=== PATIENT | female | born 1985 | race American Indian/Alaskan Native ===

== ENCOUNTER 2016-09-17 10:25 | Emergency (ER) | payer SELFPAY ==
[2016-09-17 10:59] VITALS: BP 127/78
--- NOTE | 2016-09-17 13:53 | Emergency Department Report ---
[id number] 13:38 - HPI HPI: This is a 31-year-old Afro-[place] female presents to the emergency department with a 2 to three-day history of lower abdominal cramping, some nausea and vomiting, and some discomfort to the flanks. The patient says that she could be as her last menstrual period was June 13. She has not taken any home tests. She does not have a primary care doctor or OFFSET PRINTER. She has not taken anything for symptoms prior to presentation. No recent travel or sick contacts at home. She complains of some hot flashes. She denies any chest pain, shortness of breath, vaginal discharge, dysuria, problems with bowel or bladder. Patient did say that she had a very mild amount of vaginal bleeding this morning when she was wiping after urination. ED Past Medical Hx - Past Medical History Hx Hypertension: No Hx Diabetes: Yes (Gestational) Hx Deep Vein Thrombosis: No Hx Renal Disease: No Hx Sickle Cell Disease: No Hx Seizures: No Hx Asthma: No Hx HIV: No - Social History Smoking Status: Never Smoker - Medications Home Medications: Home Medications Medication Instructions Recorded Confirmed Last Taken Type Pnv with Ca,No.72/Iron/FA 1 tab PO DAILY 09/28/13 10/25/13 10/25/13 History [ Plus Tablet] Valacyclovir HCl [Valacyclovir] 500 mg PO DAILY 10/25/13 10/25/13 10/25/13 History Ferrous Sulfate [Feosol 325 MG tab] 325 mg PO BID #60 tablet 10/26/13 Unknown Rx Ibuprofen [Motrin 600 MG tab] 800 mg PO Q8H PRN #30 tablet 10/26/13 Unknown Rx Vit-Fe Fumar-FA [ 1 each PO QDAY #30 tablet 09/17/16 Unknown Rx Vitamin] ED Review of Systems ROS: Stated complaint: ABD PAIN/NAUSEA Other details as noted in HPI Comment: All other systems reviewed and negative Constitutional: denies: fever, weakness Eyes: denies: eye pain, eye discharge, vision change ENT: denies: ear pain, throat pain Respiratory: denies: cough, shortness of breath, wheezing Cardiovascular: denies: chest pain, palpitations Gastrointestinal: abdominal pain, nausea, vomiting Genitourinary: denies: urgency, dysuria, discharge Musculoskeletal: denies: back pain, joint swelling, arthralgia Skin: denies: rash, lesions Neurological: denies: headache, weakness, paresthesias Physical Exam - Physical Exam Vital Signs: Vital Signs 09/17/16 10:55 Temperature 98.4 F Pulse Rate 98 H Respiratory 18 Rate Blood Pressure 127/78 O2 Sat by Pulse 100 Oximetry Physical Exam: GENERAL: The patient is well-developed well-nourished. HEENT: Normocephalic. Atraumatic. Extraocular motions are intact. Patient has moist mucous membranes. Pupils equal and reactive to light bilaterally. NECK: Supple. Trachea is midline. CHEST/LUNGS: Clear to auscultation. There is no respiratory distress noted. HEART/CARDIOVASCULAR: Regular. There is no tachycardia. There is no gallop rub or murmur. ABDOMEN: Abdomen is soft. Patient has some reproducible tenderness to palpation to the bilateral lower quadrants and pain that is not reproducible to the flanks. No guarding rebound tenderness. No peritoneal signs. Gravid uterus not palpable. Patient has normal bowel sounds. There is no abdominal distention. SKIN: There is no rash. There is no edema. There is no diaphoresis. NEURO: The patient is awake, alert, and oriented. The patient is cooperative. The patient has no focal neurologic deficits. The patient has normal speech. MUSCULOSKELETAL: There is no tenderness or deformity. There is no limitation range of motion. There is no evidence of acute injury. ED Course Vital Signs 09/17/16 10:55 Temperature 98.4 F Pulse Rate 98 H Respiratory 18 Rate Blood Pressure 127/78 O2 Sat by Pulse 100 Oximetry ED Medical Decision Making - Radiology Data Radiology results: report reviewed Transvaginal/ ultrasound shows a live intrauterine at about 6 weeks and 5 days. - Medical Decision Making 31-year-old female presents to the emergency department with complaint of lower abdominal pain, a very scant amount of bleeding seen while wiping. Patient says she also has not had a menstrual cycle since May but has had some intermittent bleeding occasionally. Patient's urinalysis does not show any signs of urinary tract infection or significant hematuria but urine test does come back positive. Patient was sent for a transvaginal ultrasound that shows a live intrauterine at about 7 weeks. Patient does not have any peritoneal signs, she has bilateral abdominal pain. I discussed with the patient possibility of appendicitis but it does not appear to be high probability at this time. Patient started on vitamins and given referrals for OFFSET PRINTER. She was given some Tylenol for her discomfort. She will follow-up with the OFFSET PRINTER but understands to return to the emergency department with any worsening of her symptoms, localized right lower quadrant abdominal pain with the peritoneal signs described to her, or any acute distress. She understands and agrees the plan. - Differential Diagnosis , UTI, fibroids, appendicitis, colitis, kidney stones Critical Care Time: No Critical care attestation.: If time is entered above; I have spent that time in minutes in the direct care of this critically ill patient, excluding procedure time. ED Disposition Clinical Impression: Threatened Qualifiers: Weeks of gestation: less than 8 weeks Qualified Code(s): Z3A.01 - Less than 8 weeks gestation of Abdominal pain Qualifiers: Abdominal location: lower abdomen, unspecified Qualified Code(s): R10.30 - Lower abdominal pain, unspecified Disposition: DISCHARGED TO HOME OR SELFCARE Is pt being admited?: No Does the pt Need Aspirin: No Condition: Stable Instructions: Abdominal Pain (ED), (ED), Threatened Miscarriage (ED) Additional Instructions: Please follow-up with an OFFSET PRINTER in the next few days if possible. I have started you on vitamins. You've been given the diagnosis of threatened miscarriage. The ultrasound has shown used to be at almost 7 weeks. You have the diagnosis of threatened miscarriage only because you had some vaginal bleeding. However the majority of the time these pregnancies go full-term and had no further complications. However it is imperative to follow up with an OFFSET PRINTER and return to the emergency department with any worsening of your abdominal pain, vaginal bleeding, or any acute distress. You can take Tylenol every 4 hours, using weight-based dosing, as needed for discomfort. However he should not take any other medications besides this unless prescribed by a physician. Prescriptions: Vit-Fe Fumar-FA [ Vitamin] 1 each PO QDAY #30 tablet Referrals: PRIMARY MD PROMISE [Primary Care Provider] - 3-5 Days TAMMIE SALAZAR MD [Staff Physician] - 3-5 Days KRYSTIN BLANDON MD [Staff Physician] - 3-5 Days Time of Disposition: 15:33
[2016-09-17 14:00] LABS: Bacteria,Urine 1+ /HPF (Negative); Bilirubin,Urine NEG (Negative); Blood,Urine NEG (Negative); Ketones,Urine 20 mg/dL (Negative); Leukocyte Esterase,Urine TR (Negative); Mucus,Urine 3+ /HPF; Nitrite,Urine NEG (Negative); Protein,Urine <15 mg/dL mg/dL (Negative); Urobilinogen,Urine < 2.0 mg/dL (<2.0)
[2016-09-17] MEDS ORDERED: TYLENOL PO ONE (15:03)
--- NOTE | 2016-09-17 15:13 | Ultrasound Report ---
Pelvic and transvaginal sonography: History: Abdominal pain. . Findings: Uterus measures 9.3 x 5.7 x 6.7 cm. Single intrauterine gestation is noted. CRL of the fetus is 8.1 mm corresponding to 6 weeks and 5 days of gestation. heart rate 145 per minute. Right ovary left ovary is not visualized. Impression: Single viable intrauterine gestation.
== END 2016-09-17 15:37 | disposition home or self-care (01) ==
LOC: ED 10:25
DX: O20.0 Threatened abortion (principal); O21.0 Mild hyperemesis gravidarum; Z3A.01 Less than 8 weeks gestation of pregnancy
CPT/HCPCS: 76801; 76817; 81001; 81025

== ENCOUNTER 2017-03-03 11:38 | Emergency (ER) | payer OTHER, MEDICAID ==
[2017-03-03 11:46] VITALS: BP 139/97
[2017-03-03 12:37] LABS: Bacteria,Urine 1+ /HPF (Negative); Bilirubin,Urine NEG (Negative); Blood,Urine NEG (Negative); Ketones,Urine NEG (Negative); Leukocyte Esterase,Urine NEG (Negative); Mucus,Urine 1+ /HPF; Nitrite,Urine NEG (Negative); Protein,Urine <15 mg/dL mg/dL (Negative); Urobilinogen,Urine < 2.0 mg/dL (<2.0); WBC,Urine < 1.0 /HPF (0.0-6.0)
[2017-03-03] MEDS ORDERED: FLEXERIL PO ONE (12:42)
[2017-03-03] MEDS ORDERED: MOTRIN PO ONE (12:42)
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
== END 2017-03-03 13:45 | disposition home or self-care (01) ==
LOC: ED 11:38
DX: N91.2 Amenorrhea, unspecified (principal); M54.5 Low back pain; V49.49XA Driver injured in collision with other motor vehicles in traffic accident, initial encounter; Y93.9 Activity, unspecified; Y92.9 Unspecified place or not applicable; Y99.9 Unspecified external cause status
CPT/HCPCS: 72100; 81001; 81025; 99283

== ENCOUNTER 2017-11-04 10:33 | Inpatient (IN) | payer MEDICAID, OTHER ==
--- NOTE | 2017-11-04 11:41 | Ultrasound Report ---
ULTRASOUND BIOPHYSICAL PROFILE: History: Decreased variability Technique: Transabdominal ultrasound with Doppler interrogation. 2 - breathing movements 2 - movements 2 - posture and tone 2 - Qualitative amniotic fluid volume 8 - TOTAL SCORE OF POSSIBLE 8 Heart Rate (bpm) 147
--- NOTE | 2017-11-04 11:42 | Ultrasound Report ---
ULTRASOUND OB LIMITED History: AJ Technique: Transabdominal ultrasound with Doppler interrogation. Gestation: Single Position: Cephalic Amniotic Fluid: Normal AJ = 11.1 cm Heart Rate: 147 BPM
[2017-11-04] MEDS ORDERED: NORMOSOL-R PH 7.4 1,000 ML IV ONE (12:16)
[2017-11-04] MEDS ORDERED: PITOCin/NS 20 UNIT/1000ML DRIP 20,000 MILLIUNITS/1,000 ML BAG IV ONE (12:33)
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
[2017-11-04] MEDS ORDERED: XYLOCAINE 2% INFILTRATI ONE (12:57)
[2017-11-04] MEDS ORDERED: BRETHINE IVP PRN (12:57)
[2017-11-04] MEDS ORDERED: MINERAL OIL PO PRN (12:57)
[2017-11-04] MEDS ORDERED: ePHEDrine SULFATE IV PRN (12:57)
[2017-11-04] MEDS ORDERED: BRETHINE SUB-Q PRN (12:57)
[2017-11-04] MEDS ORDERED: PITOCin/NS 30 UNIT/500ML 30 UNITS/500 ML BAG IV SCH (13:00)
[2017-11-04] MEDS ORDERED: PITOCin/NS 20 UNIT/1000ML DRIP 20 UNITS/1,000 ML BAG IV SCH (13:00)
--- NOTE | 2017-11-04 13:03 | Procedure Note ---
OB Delivery Note - Delivery Date of Delivery: 11/04/17 Surgeon: CHRIS VILLARREAL Estimated blood loss: 100cc - Vaginal Delivery presentation: vertex Delivery position: OA Intrapartum events: precipitous labor- <3hr Delivery induction: none Delivery augmentation: rupture of membranes Delivery monitor: external FHT, external uterine Route of delivery: Delivery placenta: spontaneous Delivery cord: nuchal cord (x1), 3 umbilical vessels Episiotomy: none Delivery laceration: none Delivery repair: vicryl Anesthesia: none Delivery comments: delivered OA and placed on Mom's chest for [id number] bonding and delayed cord clamping. - A at 1 minute: 8 at 5 minutes: 9 Infant Gender: Male ([id number])
[2017-11-04 13:07] LABS: Hematocrit 34.8 % (30.3-42.9); Hemoglobin 11.4 gm/dl (10.1-14.3); Mean Corpuscular HGB Conc 33 % (30-34); Mean Corpuscular Hemoglobin 28 pg (28-32); Mean Corpuscular Volume 84 fl (79-97); Platelet Count 247 K/mm3 (140-440); Red Blood Count 4.16 M/mm3 (3.65-5.03); Red Cell Distribution Width 14.8 % (13.2-15.2)
[2017-11-04] MEDS ORDERED: NORMOSOL-R PH 7.4 1,000 ML IV SCH (14:00)
[2017-11-04] MEDS: MOTRIN PO PRN (15:35)
[2017-11-04] MEDS: NORCO 5/325 PO PRN ×2 (15:35→21:35)
[2017-11-04 20:38] LABS: Bacteria,Urine 1+ /HPF (Negative); Bilirubin,Urine NEG (Negative); Blood,Urine LG (Negative); Color,Urine Yellow (Yellow); Mucus,Urine FEW /HPF; Urobilinogen,Urine < 2.0 mg/dL (<2.0)
[2017-11-04 20:40] LABS: RBC,Urine > 182.0 /HPF (0.0-6.0)
[2017-11-05] MEDS: MOTRIN PO PRN ×3 (01:11→21:20)
[2017-11-05 01:15] LABS: Hematocrit 32.8 % (30.3-42.9); Hemoglobin 10.5 gm/dl (10.1-14.3)
[2017-11-05] MEDS ORDERED: BOOSTRIX IM ONE (06:00)
[2017-11-05] MEDS: NORCO 5/325 PO PRN (08:42)
--- NOTE | 2017-11-05 08:49 | Progress Note ---
Assessment and Plan - Patient Problems (1) 37 weeks gestation of Onset Date: 11/04/17 Current Visit: Yes Status: Resolved (2) GDM (gestational diabetes mellitus), class A1 Onset Date: 11/04/17 Current Visit: Yes Status: Chronic (3) Active labor at term Onset Date: 11/04/17 Current Visit: No Status: Resolved (4) (normal spontaneous vaginal delivery) Onset Date: 11/05/17 Current Visit: Yes Status: Resolved Plan to address problem: A: S/P - PPD #1 Doing well GDM - stable P: May go home tomorrow Subjective - Subjective Date of service: 11/05/17 Principal diagnosis: s/p - PPD #1 Interval history: Pt is feeling well, bleeding improved. Baby in NICU. Patient reports: appetite normal, voiding normally, pain well controlled, flatus , ambulating normally, no nauseated [place]: doing well, in NICU Objective - Vital Signs Latest vital signs: Vital Signs Temp Pulse Resp BP BP Pulse Ox 11/05/17 08:42 20 11/04/17 23:39 98.0 F 74 20 115/76 100 11/04/17 20:00 98.6 F 84 16 105/71 11/04/17 14:46 98.4 F 67 16 108/72 100 11/04/17 14:16 71 101/64 11/04/17 14:01 68 104/66 11/04/17 13:46 71 120/64 11/04/17 13:45 71 16 101/64 98 11/04/17 13:30 71 120/64 11/04/17 13:16 71 124/81 11/04/17 13:15 97.5 F L 71 16 124/81 98 11/04/17 13:01 72 117/72 11/04/17 12:56 75 116/69 11/04/17 12:50 68 104/66 11/04/17 11:48 89 99 11/04/17 11:44 85 94 11/04/17 11:43 88 100 11/04/17 11:38 89 100 11/04/17 11:33 86 100 11/04/17 11:27 88 100 11/04/17 11:23 86 100 11/04/17 11:21 99 H 89 11/04/17 11:18 86 100 11/04/17 11:13 88 100 11/04/17 11:11 95 H 91 11/04/17 11:07 84 100 11/04/17 11:02 90 100 11/04/17 10:57 90 100 11/04/17 10:52 84 100 11/04/17 10:46 98.2 F 86 18 113/73 100 Intake and Output 11/04/17 11/05/17 11/05/17 22:59 06:59 14:59 Intake Total 300 240 Balance 300 240 Intake: Oral 240 Intake, Free Water 300 Other: Total, Intake Amount 240 # Voids Void 1 - Exam Breasts: Present: deferred Cardiovascular: Present: Regular rate Lungs: Present: Clear to auscultation Abdomen: Present: normal appearance, soft, tenderness Uterus: Present: normal, firm, fundal height below umbilicus Extremities: Present: normal - Labs Labs: Abnormal lab results 11/04/17 11/04/17 11/04/17 Range/Units 12:00 13:28 20:15 WBC 11.6 H (4.5-11.0) K/mm3 POC Glucose 141 H (70-105) Urine WBC (Auto) 24.0 H (0.0-6.0) /HPF 11/04/17 Range/Units 23:43 WBC (4.5-11.0) K/mm3 POC Glucose 60 L (70-105) Urine WBC (Auto) (0.0-6.0) /HPF Laboratory Tests 11/04/17 11/04/17 11/04/17 12:00 12:00 13:28 WBC 11.6 H RBC 4.16 Hgb 11.4 Hct 34.8 MCV 84 MCH 28 MCHC 33 RDW 14.8 Plt Count 247 POC Glucose 141 H Urine Color Urine Turbidity Urine pH Ur Specific [place] Urine Protein Urine Glucose (UA) Urine Ketones Urine Blood Urine Nitrite Urine Bilirubin Urine Urobilinogen Ur Leukocyte Esterase Urine WBC (Auto) Urine RBC (Auto) U Epithel Cells (Auto) Urine Bacteria (Auto) Urine Mucus Blood Type O POSITIVE Antibody Screen Negative 11/04/17 11/04/17 11/05/17 20:15 23:43 01:05 WBC RBC Hgb 10.5 Hct 32.8 MCV MCH MCHC RDW Plt Count POC Glucose 60 L Urine Color Yellow Urine Turbidity Clear Urine pH 6.0 Ur Specific [place] 1.015 Urine Protein 30 mg/dl Urine Glucose (UA) 150 Urine Ketones Tr Urine Blood Lg Urine Nitrite Neg Urine Bilirubin Neg Urine Urobilinogen < 2.0 Ur Leukocyte Esterase Tr Urine WBC (Auto) 24.0 H Urine RBC (Auto) > 182.0 U Epithel Cells (Auto) 1.0 Urine Bacteria (Auto) 1+ Urine Mucus Few Blood Type Antibody Screen
[2017-11-05 13:09] LABS: Amphetamine Screen,Urine PRESUMPTIVE NEGATIVE; Benzodiazepines Screen,Urine PRESUMPTIVE NEGATIVE; Cocaine Screen,Urine PRESUMPTIVE NEGATIVE; Methadone Screen,Urine PRESUMPTIVE NEGATIVE; Opiate Screen,Urine PRESUMPTIVE NEGATIVE
[2017-11-05 13:38] LABS: Cannabinoid Screen,Urine PRESUMPTIVE POSITIVE
--- NOTE | 2017-11-05 15:20 | Discharge Summary ---
Providers - Providers Date of Admission: 11/04/17 11:48 Date of discharge: 11/06/17 Attending physician: CHRIS VILLARREAL 11/05/17 13:56 Consult to Case Management [CONS] Routine Services Needed at Discharge: Sap Hana Architect Notified:: Flaca Beltran Phone number called:: [phone] Was contact made?: Yes Time called:: 09:00 Additional Physician Instructions: pt. positive for marijuana Primary care physician: CHRIS VILLARREAL Hospitalization Reason for admission: active labor, IUP at term Delivery: Episiotomy: none Laceration: none Other procedures: none complications: none Discharge diagnosis: IUP at term delivered [place] baby: male Hospital course: Unremarkable. Condition at discharge: Good Disposition: DC-01 TO HOME OR SELFCARE - Discharge Diagnoses (1) 37 weeks gestation of Status: Resolved (2) GDM (gestational diabetes mellitus), class A1 Status: Chronic (3) Active labor at term Status: Resolved (4) (normal spontaneous vaginal delivery) Status: Resolved Plan - Discharge Medications Prescriptions: Ferrous Sulfate [Feosol 325 MG tab] 325 mg PO BID #60 tablet Ibuprofen [Motrin] 600 mg PO Q6H PRN #30 tablet PRN Reason: Pain Vit Calc,Iron,Folic [ Vitamins] 1 each PO DAILY #30 tablet - Provider Discharge Summary Activity: routine, no sex for 6 weeks, no heavy lifting 4 weeks, no strenuous exercise Diet: routine Instructions: routine Additional instructions: [] Smoking cessation referral if applicable(refer to patient education folder for contact #) [] Refer to [facility] Booklet Call your doctor immediately for: * Fever > 100.5 * Heavy vaginal bleeding ( >1 pad per hour) * Severe persistent headache * Shortness of breath * Reddened, hot, painful area to leg or breast * Drainage or odor from incision. * Keep incision clean and dry at all times and follow doctor's instructions regarding bathing/showering - Follow up plan Follow up: HCRIS VILLARREAL MD [Primary Care Provider] - 6 Weeks
[2017-11-06] MEDS: MOTRIN PO PRN (09:55)
[2017-11-06] MEDS: NORCO 5/325 PO PRN (09:55)
[2017-11-06 10:45] VITALS: BP 104/71
== END 2017-11-06 12:03 | disposition home or self-care (01) | DRG 775 ==
LOC: TRG 10:33 → LD 11:48 → OB 15:02
PROVIDERS: ADMIT Obstetrics & Gynecology; ATTEND Obstetrics & Gynecology
PROC: 10E0XZZ Delivery of Products of Conception, External Approach (ICD-10-PCS; principal; 2017-11-04)
PROC: 10907ZC Drainage of Amniotic Fluid, Therapeutic from Products of Conception, Via Natural or Artificial Opening (ICD-10-PCS; 2017-11-04)
PROC: 3E0234Z Introduction of Serum, Toxoid and Vaccine into Muscle, Percutaneous Approach (ICD-10-PCS; 2017-11-05)
DX: O62.3 Precipitate labor (principal); O69.81X0 Labor and delivery complicated by cord around neck, without compression, not applicable or unspecified; O24.429 Gestational diabetes mellitus in childbirth, unspecified control; Z3A.37 37 weeks gestation of pregnancy; Z37.0 Single live birth; Z23 Encounter for immunization
CPT/HCPCS: 36415; 76815; 76819; 80307; 81001; 82962; 85014; 85018; 85027; 86592; 86706; 86762; 86850; 86900; 86901; 87806; 90715; 99211; 99406; G0463; J2590

== ENCOUNTER 2018-01-07 09:47 | Day surgery (SDC) | payer MEDICAID, OTHER ==
[~2018-01-07 09:47] MED LIST: LACTATED RINGERS 1,000 ML IV SCH; PERCOCET 5/325 PO PRN; TORADOL IV PRN; VERSED IV NR; ZOFRAN IV PRN
--- NOTE | 2018-01-07 10:17 | Short Stay Summary ---
Short Stay Documentation Date of service: 01/07/18 Narrative H&P: Pt is a 32yo BF LMP 12/22/17 presents for permanent sterilization. - History Principal diagnosis: Desires permanent sterilization H&P: obtained from office Past Medical History: diabetes Past Surgical History: No surgical history Social history: no significant social history, single - Allergies and Medications Current Medications: Allergies No Known Allergies Allergy (Verified 01/07/18 08:20) Home Medications Medication Instructions Recorded Confirmed Last Taken Type No Known Home Medications [No 01/06/18 01/06/18 Unknown History Reported Home Medications] Active Medications Hydromorphone HCl (Dilaudid) 0.25 mg IV Q10MIN PRN PRN Reason: Pain, Moderate (4-6) Stop: 01/07/18 17:00 Lactated Ringer's (Lactated Ringers) 1,000 mls @ 100 mls/hr IV DIRECT IRENE Cefazolin Sodium (Ancef/Sterile Water 2 Gm/20 Ml) 2 gm in 20 mls @ 80 mls/hr IV PREOP NR; Protocol Ketorolac Tromethamine (Toradol) 30 mg IV ONCE PRN PRN Reason: Pain, Moderate (4-6) Midazolam HCl (Versed) 2 mg IV PREOP NR Stop: 01/07/18 23:59 Ondansetron HCl (Zofran) 4 mg IV ONCE PRN PRN Reason: Nausea And Vomiting Oxycodone/Acetaminophen (Percocet 5/325) 1 tab PO ONCE PRN PRN Reason: Pain, Moderate (4-6) Stop: 01/07/18 17:00 - Physical exam General appearance: no acute distress Integumentary: no rash HEENT: Atraumatic Lungs: Clear to auscultation Breasts: deferred Heart: Regular rate Gastrointestinal: normal Female Genitourinary: deferred Rectal Exam: deferred Extremities: no ischemia, No edema Neurological: Normal gait, Normal speech - Brief post op/procedure progress note Date of procedure: 01/07/18 Pre-op diagnosis: Desires permanent sterilization Post-op diagnosis: same Procedure: Laproscopic Bilateral Tubal Ligation Anesthesia: GETA Findings: Normal uterus. Normal tubes and ovaries bilaterally. Surgeon: CHRIS VILLARREAL Estimated blood loss: minimal Pathology: none Condition: stable - Hospital course Hospital course: Unremarkable. - Disposition Condition at discharge: Good Disposition: DC-01 TO HOME OR SELFCARE - Discharge Diagnoses (1) Encounter for sterilization Status: Resolved Short Stay Discharge Plan Activity: no restrictions Diet: regular Wound: open to air, keep clean and dry Follow up with: PRIMARY CARE, [Primary Care Provider] - 7 Days CHRIS VILLARREAL MD [Staff Physician] - 14 Days Prescriptions: HYDROcodone/APAP 5-325 [[place] 5/325] 1 each PO Q6HR PRN #20 tablet PRN Reason: Pain
[2018-01-07] MEDS ORDERED: NACL BACTERIOSTATIC INFILTRATI ONE (10:24)
[2018-01-07] MEDS ORDERED: ANCEF/STERILE WATER 2 GM/20 ML 2 GM/20 ML SYRINGE IV NR (11:00)
--- NOTE | 2018-01-07 11:04 | Anesthesia Consultation ---
Anesthesia Consult and Med Hx Date of service: 01/07/18 - Airway Anesthetic Teeth Evaluation: Good ROM Head & Neck: Adequate Mental/Hyoid Distance: Adequate Mallampati Class: Class II Intubation Access Assessment: Probably Good - Pulmonary Exam CTA: Yes - Cardiac Exam Cardiac Exam: RRR - Pre-Operative Health Status ASA Pre-Surgery Classification: ASA2 Proposed Anesthetic Plan: General - Pulmonary Hx Smoking: Yes Hx Asthma: No COPD: No Hx Pneumonia: No - Cardiovascular System Hx Hypertension: No - Central Nervous System Hx Seizures: No Hx Psychiatric Problems: No - Endocrine Hx Renal Disease: No Hx End Stage Renal Disease: No Hx Hypothyroidism: No Hx Hyperthyroidism: No - Hematic Hx Anemia: Yes (Not being treated) Hx Sickle Cell Disease: No - Other Systems Hx Alcohol Use: Yes (occas) Hx Substance Use: Yes (Marijuana daily) Hx Cancer: No
--- NOTE | 2018-01-07 11:05 | Anesthesia Day of Surgery ---
Anesthesia Day of Surgery - Day of Surgery Patient Examined: Yes Patient H&P Reviewed: Yes Patient is NPO: Yes
[2018-01-07 11:18] LABS: Hematocrit 35.6 % (30.3-42.9); Hemoglobin 11.6 gm/dl (10.1-14.3)
[2018-01-07] MEDS ORDERED: MARCAINE 0.5% 30 ML INFILTRATI ONE (11:19)
[2018-01-07] MEDS ORDERED: XYLOCAINE MPF 2% ONE (11:39)
[2018-01-07] MEDS ORDERED: DILAUDID ONE (11:40)
[2018-01-07] MEDS ORDERED: DIPRIVAN 10 MG/ML IV ONE (11:40)
[2018-01-07] MEDS ORDERED: ZEMURON IV ONE (11:41)
[2018-01-07] MEDS ORDERED: NEOSTIGMINE ONE (12:14)
[2018-01-07] MEDS ORDERED: TORADOL ONE (12:14)
[2018-01-07] MEDS ORDERED: ZOFRAN ONE (12:14)
[2018-01-07] MEDS ORDERED: ROBINUL ONE (12:15)
[2018-01-07] MEDS ORDERED: MARCAINE 0.5% INFILTRATI ONE ×2 (12:18)
--- NOTE | 2018-01-07 12:38 | Operative Report ---
Operative Report Operative Report: PREOPERATIVE DIAGNOSIS: Desires permanent sterilization POSTOPERATIVE DIAGNOSIS: Same OPERATIVE PROCEDURE: Laparoscopic bilateral tubal ligation. SURGEON: Hermelindo Byrd MD ANESTHESIA: Gen. endotracheal intubation ANESTHESIOLOGIST: Dr. Richards ESTIMATED BLOOD LOSS: Less than 10 mL's FINDINGS: A normal uterus with normal tubes and ovaries bilaterally COMPLICATIONS: None COUNTS: Correct x3. PROCEDURE: After the patient was correctly identified and after general anesthesia was administered, the patient was prepped and draped in usual sterile fashion and placed in dorsal lithotomy position. First, the bladder was emptied using a straight catheter. Next, a speculum was placed in the vaginal vault and the anterior lip of the cervix was grasped using a single- tooth tenaculum. The uterine manipulator was then placed and the tenaculum and speculum were removed. Attention was then turned to the abdomen where first a periumbilical incision was made using a skin knife, and the Optiview trocar was inserted under direct visualization. After an adequate amount of abdominal insufflation, visualization of the pelvic organs found the uterus to be normal, and the tubes and ovaries to be normal bilaterally. Next, the left fallopian tube was grasped using the Kleppingers, and after identifying the fimbriated end of the left tube, this tube was cauterized in 3 continuous [address] along the proximal portion of the left tube. The same procedure was performed on the right fallopian tube after first identifying the fimbriated end of the right tube. This tube was also cauterized in 3 continuous places along the proximal portion of the right tube. At this point, the procedure was then considered complete. All instruments were removed from the abdomen. The abdomen was deflated and the periumbilical incision was closed using 0 Vicryl suture in a [id number] configuration on the fascia, followed by 4-0 Monocryl suture in sub-cuticular fashion on the skin. The incision was also infiltrated using 0.5% Marcaine solution. The uterine manipulator was removed. The patient tolerated the procedure well and was transferred to recovery room stable condition.
[2018-01-07] MEDS: DILAUDID IV PRN ×4 (12:58→13:32)
--- NOTE | 2018-01-07 13:15 | Post Anesthesia Evaluation ---
- Post Anesthesia Evaluation Patient Participated: Yes Airway Patent: Yes Stable Respiratory Function: Yes Nausea/Vomiting: No Temp > 96.8F: Yes Pain Manageable: Yes Adequeate Hydration: Yes Anesthesia Complications: No Block Receding Appropriately: Not Applicable Patient on Ventilator: No
[2018-01-07 13:52] VITALS: BP 120/75
== END 2018-01-07 14:22 | disposition home or self-care (01) ==
LOC: OR 09:47
PROVIDERS: ATTEND Obstetrics & Gynecology
DX: Z30.2 Encounter for sterilization (principal); E11.9 Type 2 diabetes mellitus without complications; F17.200 Nicotine dependence, unspecified, uncomplicated; Z91.040 Latex allergy status
CPT/HCPCS: 36415; 58670; 81025; 85014; 85018; J0690; J1170; J1885; J2250; J2405; J2704; J2710; J7120

== ENCOUNTER 2020-01-02 11:08 | Emergency (ER) | payer MEDICAID ==
--- NOTE | 2020-01-02 13:03 | Emergency Department Report ---
Chief Complaint: Sore Throat Stated Complaint: THROAT PAIN Time Seen by Provider: 01/02/20 11:58 - HPI History of Present Illness: 34-year-old female who presents to ED complaining of f discomfort in the lymph nodes in her throat. Patient states that she has had dental caries and her wisdom tooth which she thinks that it might be infected causing her lymph nodes to swell up. Patient denies throat pain, difficulty swallowing or pain with swallowing. She denies fever, gingival pain or swelling, coughing, nausea vomiting or abdominal pain. - ROS Review of Systems: As noted in HPI - Exam Vital Signs: Vital Signs 01/02/20 11:15 Temperature 98.3 F Pulse Rate 102 H Respiratory 18 Rate Blood Pressure 132/87 O2 Sat by Pulse 100 Oximetry Physical Exam: GENERAL: Alert and oriented x3, no apparent distress, Normal Gait, atraumatic. MOUTH:Mouth is well hydrated and without lesions. Tonsils nonerythematous or swollen, Uvula midline, Tongue not elevated. Mucous membranes are moist. Posterior pharynx clear, no exudate or lesions. Patent airways. Dental caries noted on tooth #32 and 17, no gingival enlargement or bleeding NECK: Supple. Non edematous, No carotid bruits. No lymphadenopathy or thyromegaly. No C-spine tenderness NEUROLOGIC: The patient is cooperative with no focal neurologic deficits. SKIN: Warm and dry, No lesions, No ulceration or induration present. MSE screening note: Focused history and physical exam performed. Due to findings the following was ordered: ED Medical Decision Making - Medical Decision Making 34-year-old female who presents with odontogenic caries ED course: Pt has no evidence of acute impending airway compromise. At this point, patient will be discharged home on some antibiotics and pain trial, she will do well with an outpatient course of antibiotics. Follow up with the Dental Clinic as referred Vital signs are normal patient is in no acute distress. Pt had an effect uneventful ED stay ED Disposition for MSE Clinical Impression: Pain due to dental caries Disposition: - TO HOME OR SELFCARE Is pt being admited?: No Does the pt Need Aspirin: No Condition: Stable Instructions: Dental Caries (ED) Additional Instructions: Make sure to follow up with the dentist as discussed. Take all your medications as you've been prescribed. If you have any worsening symptoms or develop new symptoms please return to ED immediately. Prescriptions: Amoxicillin [Amoxicillin TAB] 875 mg PO BID #20 tablet Referrals: PRIMARY CARE, [Primary Care Provider] - 3-5 Days [facility] [Outside] - 3-[address] [facility] [Outside] - 3-5 Days [facility] [Outside] - 3-5 Days Forms: Accompanied Note, Work/School Release Form(ED) Time of Disposition: 13:03
== END 2020-01-02 13:18 | disposition home or self-care (01) ==
LOC: ED 11:08
DX: K02.9 Dental caries, unspecified (principal); Z91.040 Latex allergy status
CPT/HCPCS: 99282

== ENCOUNTER 2020-05-03 18:38 | Emergency (ER) | payer MEDICAID ==
[2020-05-03 19:06] VITALS: BP 151/90
[2020-05-03] MEDS ORDERED: LIDOCAINE VISCOUS 2% 15 ML ORAL LIQD PO ONE (19:58)
[2020-05-03] MEDS ORDERED: KETOROLAC 30 MG/1 ML INJ IM ONE (19:58)
[2020-05-03] MEDS ORDERED: AMOXICILLIN/K CLAV 875/125MG TAB PO ONE (19:58)
[2020-05-03] MEDS ORDERED: ONDANSETRON 4 MG ODT TAB PO ONE (19:58)
[2020-05-03] MEDS ORDERED: ACETAMINOPHEN 500 MG TAB PO ONE (19:58)
[2020-05-03] MEDS ORDERED: dexAMETHasone 20 MG/5 ML VIAL IM ONE (19:58)
--- NOTE | 2020-05-03 20:18 | Emergency Department Report ---
ED General Adult HPI - General Chief complaint: Sore Throat Stated complaint: SORE THROAT Source: patient Mode of arrival: Ambulatory Limitations: No Limitations - History of Present Illness Initial comments: Patient is a 34-year-old -[place] female with a history of gestational diabetes, GERD, and migraine headaches who presents to the ED with acute onset persistent severe sore throat with dysphagia for the last 5 days. Patient also complains of diffuse body aches and pains and subjective fever with lack of appetite. Patient states that no one else at home is had similar symptoms. Patient denies cough, nasal and sinus congestion, dizziness, syncope, chest pain, shortness of breath, abdominal pain, nausea vomiting or diarrhea, change in vision or palpitation, swollen lips or swollen tongue and change in vision. MD Complaint: Sore throat, dysphagia, subjective fever -: Sudden, days(s) (5) Location: mouth Radiation: non-radiation Severity scale (0 -10): 8 Quality: burning, aching, sharp Consistency: constant Improves with: none Worsens with: eating Associated Symptoms: denies other symptoms, fever/chills, headaches, loss of appetite, malaise. denies: chest pain, cough, diaphoresis, nausea/vomiting, rash, seizure, shortness of breath, syncope, weakness Treatments Prior to Arrival: NSAID - Related Data Previous Rx's Medication Instructions Recorded Last Taken Type HYDROcodone/APAP 5-325 [[place] 1 each PO Q6HR PRN #20 tablet 01/07/18 Unknown Rx 5/325] Amoxicillin [Amoxicillin TAB] 875 mg PO BID #20 tablet 01/02/20 Unknown Rx Ibuprofen [Motrin] 800 mg PO Q8HR PRN #30 tablet 05/03/20 Unknown Rx Lidocaine Viscous 2% 10 ml PO Q4H PRN #120 ml 05/03/20 Unknown Rx Ondansetron [Zofran Odt] 4 mg PO Q6HR PRN #15 tab.rapdis 05/03/20 Unknown Rx Penicillin V Potassium 500 mg PO Q6H #40 tablet 05/03/20 Unknown Rx predniSONE [Deltasone] 40 mg PO QDAY #10 tab 05/03/20 Unknown Rx Allergies Allergy/AdvReac Type Severity Reaction Status Date / Time latex Allergy Swelling Verified 01/07/18 12:39 ED Review of Systems ROS: Stated complaint: SORE THROAT Other details as noted in HPI Constitutional: chills, fever, malaise, weakness Eyes: denies: eye pain, eye discharge, vision change ENT: throat pain. denies: ear pain Respiratory: denies: cough, shortness of breath, wheezing Cardiovascular: denies: chest pain, palpitations Endocrine: no symptoms reported Gastrointestinal: denies: abdominal pain, nausea, vomiting, diarrhea Genitourinary: denies: urgency, dysuria, discharge Musculoskeletal: denies: back pain, joint swelling, arthralgia Skin: denies: rash, lesions Neurological: denies: headache, weakness, paresthesias Psychiatric: denies: anxiety, depression Hematological/Lymphatic: denies: easy bleeding, easy bruising ED Past Medical Hx - Past Medical History Hx Hypertension: No Hx Diabetes: Yes (Gestational only) Hx Deep Vein Thrombosis: No Hx GERD: Yes (With preg only) Hx Renal Disease: No Hx Sickle Cell Disease: No Hx Headaches / Migraines: Yes Hx Seizures: No Hx Asthma: No Hx COPD: No Hx HIV: No - Surgical History Past Surgical History?: No Additional Surgical History: Tubal ligation - Social History Smoking Status: Current Every Day Smoker - Medications Home Medications: Home Medications Medication Instructions Recorded Confirmed Last Taken Type HYDROcodone/APAP 5-325 [[place] 1 each PO Q6HR PRN #20 tablet 01/07/18 Unknown Rx 5/325] Amoxicillin [Amoxicillin TAB] 875 mg PO BID #20 tablet 01/02/20 Unknown Rx Ibuprofen [Motrin] 800 mg PO Q8HR PRN #30 tablet 05/03/20 Unknown Rx Lidocaine Viscous 2% 10 ml PO Q4H PRN #120 ml 05/03/20 Unknown Rx Ondansetron [Zofran Odt] 4 mg PO Q6HR PRN #15 tab.rapdis 05/03/20 Unknown Rx Penicillin V Potassium 500 mg PO Q6H #40 tablet 05/03/20 Unknown Rx predniSONE [Deltasone] 40 mg PO QDAY #10 tab 05/03/20 Unknown Rx ED Physical Exam - General Limitations: No Limitations General appearance: alert, in no apparent distress - Head Head exam: Present: atraumatic, normocephalic, normal inspection - Eye Eye exam: Present: normal appearance, PERRL, EOMI Pupils: Present: normal accommodation - ENT ENT exam: Present: mucous membranes moist, TM's normal bilaterally, normal external ear exam, other (Erythematous oropharynx and white take tonsillar exudates) - Neck Neck exam: Present: normal inspection, full ROM, lymphadenopathy - Respiratory Respiratory exam: Present: normal lung sounds bilaterally. Absent: respiratory distress, wheezes, rhonchi, chest wall tenderness, accessory muscle use, decreased breath sounds - Cardiovascular Cardiovascular Exam: Present: regular rate, normal rhythm, normal heart sounds. Absent: systolic murmur, diastolic murmur, rubs, gallop - GI/Abdominal GI/Abdominal exam: Present: soft, normal bowel sounds. Absent: tenderness, g uarding, hyperactive bowel sounds - Extremities Exam Extremities exam: Present: normal inspection, full ROM, normal capillary refill - Back Exam Back exam: Present: normal inspection, full ROM. Absent: tenderness, muscle spasm, paraspinal tenderness - Neurological Exam Neurological exam: Present: alert, oriented X3, CN II-XII intact, normal gait, reflexes normal - Psychiatric Psychiatric exam: Present: normal affect, normal mood - Skin Skin exam: Present: warm, dry, intact, normal color. Absent: rash ED Course Vital Signs 05/03/20 19:02 Temperature 98.5 F Pulse Rate 79 Respiratory 16 Rate Blood Pressure 151/90 O2 Sat by Pulse 100 Oximetry ED Medical Decision Making - Medical Decision Making This is a 34-year-old -[place] female with a history of gestational diabetes, GERD, and migraine headaches who presents to the ED with acute onset persistent severe sore throat with dysphagia for the last 5 days. Patient also complains of diffuse body aches and pains and subjective fever with lack of appetite. Patient states that no one else at home is had similar symptoms. In the ED, patient is alert and oriented x3 and is not in distress. Patient was treated for pain in the ED and also given initial oral antibiotics. Patient is hemodynamically stable. Patient discharged home on pain medications and antibiotics and was advised to follow-up with her primary care physician in 7 to 10 days for reevaluation or return to the ED immediately if symptoms get worse. - Differential Diagnosis Strep pharyngitis; Tonsillitis; URI; Mononucleosis Critical care attestation.: If time is entered above; I have spent that time in minutes in the direct care of this critically ill patient, excluding procedure time. ED Disposition Clinical Impression: Acute bacterial pharyngitis, Acute bacterial tonsillitis Disposition: TO HOME OR SELFCARE Is pt being admited?: No Does the pt Need Aspirin: No Condition: Stable Instructions: Pharyngitis (ED), Strep Throat (ED), Tonsillitis (ED) Additional Instructions: Take medication with food, drink plenty of fluids and follow-up with your primary care physician in 7 to 10 days for reevaluation. Return to the ED immediately if symptoms get worse. Prescriptions: predniSONE [Deltasone] 40 mg PO QDAY #10 tab Lidocaine Viscous 2% 10 ml PO Q4H PRN #120 ml PRN Reason: Sore Throat Ibuprofen [Motrin] 800 mg PO Q8HR PRN #30 tablet PRN Reason: Pain , Severe (7-10) Penicillin V Potassium 500 mg PO Q6H #40 tablet Ondansetron [Zofran Odt] 4 mg PO Q6HR PRN #15 tab.rapdis PRN Reason: Nausea Referrals: [facility] [Provider Group] - 7-10 days Forms: Work/School Release Form(ED) Time of Disposition: 20:19 Print Language: TRINIDADIAN
== END 2020-05-03 20:48 | disposition home or self-care (01) ==
LOC: ED 18:38
DX: J03.80 Acute tonsillitis due to other specified organisms (principal); B96.89 Other specified bacterial agents as the cause of diseases classified elsewhere; E11.9 Type 2 diabetes mellitus without complications; K21.9 Gastro-esophageal reflux disease without esophagitis; G43.909 Migraine, unspecified, not intractable, without status migrainosus; F17.200 Nicotine dependence, unspecified, uncomplicated; Z98.51 Tubal ligation status; Z79.899 Other long term (current) drug therapy; Z91.040 Latex allergy status
CPT/HCPCS: 96372; 99282; J1100; J1885; Q0162